=== PATIENT | female | born 1970 | race African-American/Black ===

== ENCOUNTER 2018-08-25 11:49 | Emergency (ER) | payer MEDICAID ==
[~2018-08-25] VITALS: Ht 175.3 cm; Wt 61.0 kg
[2018-08-25] MEDS ORDERED: KETOROLAC 30MG/ML VIAL IM ONE (14:45)
[2018-08-25 17:31] VITALS: BP 131/74
== END 2018-08-25 17:35 | disposition home or self-care (01) ==
LOC: ER 12:17
DX: M25.511 Pain in right shoulder (principal); Z98.890 Other specified postprocedural states
CPT/HCPCS: 73000; 73030; 81025; 96372; 99283; J1885